=== PATIENT | male | born 1970 | race American Indian/Alaskan Native ===

== ENCOUNTER 2018-03-20 18:37 | Emergency (ER) | payer SELFPAY ==
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
--- NOTE | 2018-03-20 22:28 | Cat Scan Report ---
FINAL REPORT PROCEDURE: CT FACIAL BONES WO CON TECHNIQUE: Computerized tomography of the facial bones and soft tissues with axial and coronal sections performed from the cranial aspect of the frontal sinuses to the caudal portion of the mandible without contrast material. HISTORY: laceration and pain to right side of nose COMPARISON: No prior studies are available for comparison. FINDINGS: Bones: Acute comminuted fractures are noted involving bilateral nasal bones without significant displacement. There also fracture involving the nasal spine. An acute nondisplaced fracture is also noted involving the anterior wall of left maxillary sinus. There is diffuse mucosal thickening of bilateral maxillary sinuses with air-fluid levels. Zygomatic arches, pterygoid plates and mandible are intact. Bilateral orbital lake are intact.. Soft tissues: Bilateral orbital contents including eye bowels and retrobulbar structures are within normal limits. Moderate degree soft tissue swelling is noted involving the left side face.. Other: None. IMPRESSION: Acute fractures of bilateral nasal bones, nasal spine and the anterior wall left maxillary sinus. Mucosal thickening involving bilateral maxillary sinuses with air-fluid levels most likely represent sinusitis. However due to the presence of a fracture of the left maxillary sinus wall intra sinus hemorrhage cannot be excluded.
[2018-03-20] MEDS ORDERED: NACL 0.9% 1000 ML 1,000 ML IV ONE (23:18)
[2018-03-20] MEDS ORDERED: BOOSTRIX IM ONE (23:18)
[2018-03-20] MEDS ORDERED: MORPHINE IV ONE (23:18)
[2018-03-21 00:04] VITALS: BP 160/100
== END 2018-03-21 00:15 | disposition other institution (70) ==
LOC: ED 18:37
DX: S02.2XXA Fracture of nasal bones, initial encounter for closed fracture (principal); I10 Essential (primary) hypertension; F17.200 Nicotine dependence, unspecified, uncomplicated; Y00.XXXA Assault by blunt object, initial encounter; Y93.89 Activity, other specified; Y92.410 Unspecified street and highway as the place of occurrence of the external cause; Y99.8 Other external cause status
CPT/HCPCS: 70486; 90471; 90715; 96374; 99285; J2270; J7030